=== PATIENT | male | born 1945 | race Two or more races ===

== ENCOUNTER 2016-10-19 11:27 | Inpatient (IN) | payer MEDICARE, OTHER ==
[~2016-10-19] VITALS: Ht 175.3 cm; Wt 79.4 kg
[2016-10-19] MEDS ORDERED: CYAN10006 IJ (16:42)
[2016-10-19] MEDS ORDERED: FLUO60SO3 TP (16:42)
[2016-10-19] MEDS ORDERED: PIPE3.379 IV (16:42)
[2016-10-19] MEDS ORDERED: PRAS10TA5 PO (16:42)
[2016-10-19] MEDS ORDERED: ROSU10TA PO (16:42)
[2016-10-19] MEDS ORDERED: CALC1TAB91 PO (16:42)
[2016-10-19] MEDS ORDERED: VANC1PLA10 IV (16:42)
[2016-10-19] MEDS ORDERED: HYDR59LO5 RC (16:42)
[2016-10-19] MEDS ORDERED: FENO134C PO (16:42)
[2016-10-19] MEDS ORDERED: TOLT4CAP PO (16:42)
[2016-10-19] MEDS ORDERED: EZET10TA13 PO (16:42)
[2016-10-19] MEDS ORDERED: DULO20CA PO (16:42)
[2016-10-19] MEDS ORDERED: OMEG1CAP40 PO (16:42)
[2016-10-19] MEDS ORDERED: CELE200C PO (16:42)
--- NOTE | 2016-10-19 19:16 | NUR ---
pt admitted at 10/19 at 1600. pt transferred in a gurney. vital signs : temp 98.2 hr 84 rr 16 o2 sat 98% bp 121/67. pt had no belongings. all wounds taken picture and put in chart. pt had no dentures on arrival. pt seen by doctor. all dresssings changed. all assessments done and charted. med recon done. pt in no signs of acute distress.
[2016-10-19 20:00] VITALS: BP 170/68
[2016-10-19 20:56] VITALS: BP 103/63
[2016-10-19] MEDS ORDERED: PIPERACILLIN/TAZOBACTAM/D5W 3.375 G in PREMIXED 1 EACH IV SCH (22:00)
[2016-10-19] MEDS ORDERED: PIPERACILLIN/TAZO/D5W 3.375 GM FROZEN IV SCH (22:00)
[2016-10-19] MEDS: PIPERACILLIN/TAZOBACTAM/D5W 3.375 G in PREMIXED 1 EACH IV SCH (22:09)
--- NOTE | 2016-10-20 02:07 | NUR ---
NEW ADMIT FROM [facility] ,S/P LEFT HIP ORIF STILL WITH PEDRO LUIS COVERED WITH DRESSING, BP RECHECKED AND NOTED WNL. DENIES ANY PAIN, MIDLINE PATENT AND FLUSHES BUT NO BLOOD RETURN. ON ANTIBIOTICS, ALL NEEDS ATTENDED, CALL LIGHT AT REACHED.
[2016-10-20] MEDS: VANCOMYCIN IV 1 G in PREMIXED 0 EACH IV SCH ×2 (02:59→20:19)
[2016-10-20 05:17] LABS: *OCCULT BLOOD STOOL POSITIVE (NEGATIVE)
--- NOTE | 2016-10-20 05:58 | NUR ---
PATIENT SLEPT MOST OF THE NIGHT, AWAKE, VERBALLY RESPONSIVE, NO SOB NO CHEST PAIN NOTED, COMPLAIN OF MILD DISCOMFORT ON LEFT HIP SURGERY, DRESSING INTACT, PILLOW PLACED BETWEEN THE LEGS, PATIENT HAS SOFT BM, STOOL SAMPLE SEND IO THE LAB, CONT IV ABX WITH NO ADVERSE REACTION NOTED, MIDLINE ON LEFT UPPER ARM INTACT, PATENT, NO S/S OF DISTRESS. CONT TO MONITOR.
[2016-10-20] MEDS: PIPERACILLIN/TAZOBACTAM/D5W 3.375 G in PREMIXED 1 EACH IV SCH ×3 (07:07→22:19)
[2016-10-20 07:33] LABS: BASOPHILS % (AUTO) 0.3 % (0.0-2.0); EOSINOPHILS # (AUTO) 0.3 K/uL (0.0-0.7); EOSINOPHILS % (AUTO) 2.2 % (0.0-7.0); HEMATOCRIT 25.3 % (40-50); HEMOGLOBIN 8.3 G/DL (14.0-18.0); LYMPHOCYTES # (AUTO) 2.8 K/UL (0.8-4.8); LYMPHOCYTES % (AUTO) 18.6 % (20.5-51.5); MEAN CORPUSCULAR HEMOGLOBIN 30.6 UUG (27.0-31.0); MEAN CORPUSCULAR HGB CONC 33 g/dL (32.0-37.0); MONOCYTES % (AUTO) 6.7 % (0.0-11.0); NEUTROPHILS % (AUTO) 72.2 % (38.5-71.5); PLATELET COUNT (AUTO) 291 K/UL (150-450); RED BLOOD CELL COUNT(AUTO) 2.72 MIL/UL (4.7-6.1); WHITE BLOOD COUNT (AUTO) 15.1 K/UL (4.0-11.2)
[2016-10-20 07:47] VITALS: BP 107/62
[2016-10-20 07:50] LABS: BILIRUBIN,TOTAL 0.8 mg/dL (0.2-1.0); MAGNESIUM 1.4 mg/dL (1.8-2.4); PHOSPHOROUS 3.1 mg/dL (2.5-4.9); POTASSIUM 2.9 mmol/L (3.5-5.1); TOTAL PROTEIN, SERUM 5.1 g/dL (6.4-8.2)
[2016-10-20 07:57] LABS: BAND % (MANUAL) 6 % (0-10); EOSINOPHILS % (MANUAL) 1 % (0-8); LYMPHOCYTES % (MANUAL) 21 % (20-40); MONOCYTES % (MANUAL) 3 % (2-10); NEUTROPHILS % (MANUAL) 69 % (42-75)
[2016-10-20 07:59] LABS: THYROID STIMULATING HORMONE 1.238 mIU/mL (0.358-3.740)
[2016-10-20] MEDS ORDERED: Medication Not On Formulary EA (Omega-3 Fatty Acids/Fish Oil (Omega 3 1,000 Mg Softgel) PO SCH (09:00)
[2016-10-20] MEDS ORDERED: FLUOCINONIDE 0.05% SOLU 60 ML BOTTLE TP SCH (09:00)
[2016-10-20] MEDS: FLUOCINONIDE 0.05% CREAM 30 GM TUBE TP SCH ×2 (09:30→17:53)
[2016-10-20] MEDS: CALCIUM CARB/VITAMIN D 500MG-200UNITS TABLET PO SCH ×2 (10:11→17:53)
[2016-10-20] MEDS: TOLTERODINE 2 MG TABLET PO SCH ×2 (10:11→20:29)
[2016-10-20] MEDS: DULOXETINE 20 MG CAPSULE.DR PO SCH (10:11)
[2016-10-20] MEDS: OMEGA-3 FATTY ACIDS/FISH OIL CAPSULE PO SCH (10:11)
[2016-10-20] MEDS: NICOTINE 7 MG/24HR PATCH TD SCH (10:12)
[2016-10-20] MEDS ORDERED: POTASSIUM CHLORIDE 20 MEQ TAB.PRT.SR PO ONE (11:30)
[2016-10-20] MEDS: MAGNESIUM SULFATE/D5W 100 ML IV SCH ×3 (12:37→15:04)
[2016-10-20] MEDS ORDERED: SOD FERRIC GLUC COMPLX/SUCROSE 125 MG in IV NORMAL SALINE 100 ML IV SCH (15:00)
--- NOTE | 2016-10-20 15:13 | NUR ---
Clinical Pharmacy Note: Vancomycin Pharmacy to Dose Subjective: To start vancomycin in this 70 y/o gentleman for sepsis, leukocytosis, perirectal abscess Objective: weight: 175 lbs height 5'9'' BUN 8 Scr 1.0 Wbc 15.1 Temp 98.2 Note: patient was on vancomycin 1gm q18hrs at [facility], trough was 17 yesterday 10/19 @ 0743 before transfer to . Assessment/Plan Regimen of vanco 1gm q18hrs was continued based on previous dosing at [facility], expected trough 17. Will order trough before 4th scheduled dose (not ordered yet). If renal function were to become unstable, will d/c and dose per level or adjust as apprpriately. Will continue to follow.
[2016-10-20] MEDS: HYDROCODONE/APAP 5-325MG TABLET PO PRN (15:31)
[2016-10-20] MEDS: SOD FERRIC GLUC COMPLX/SUCROSE 125 MG in IV NORMAL SALINE 100 ML IV SCH (17:53)
[2016-10-20 20:16] VITALS: BP 108/72
[2016-10-20] MEDS: ACETAMINOPHEN 325 MG TABLET PO PRN (20:31)
[2016-10-21] MEDS: HYDROCODONE/APAP 5-325MG TABLET PO PRN ×2 (00:48→11:57)
[2016-10-21] MEDS: PIPERACILLIN/TAZOBACTAM/D5W 3.375 G in PREMIXED 1 EACH IV SCH ×3 (06:02→21:21)
--- NOTE | 2016-10-21 06:35 | NUR ---
SON CAME LAST NIGHT BROUGHT FOOD AND FED PT,PT NOT EATING WELL,ENCOURAGE TO DRINK JUICES AND BOOST, TRANSLATED BY SON, MEDICATED WITH TYLENOL WITH LITTLE EFFECT AND GIVEN NORCO AND FALL ASLEEP.CONTINUE ON ANTIBIOTICS,INCONTINENT OF BLADDER, NO BM OVERNIGHT. KEPT LEGS ELEVATED.VSS,AFEBRILE
--- NOTE | 2016-10-21 08:10 | NUR ---
TAVIA Rizzo at bedside, encouraging patient to let check diaper, patient refused, stated "later". Refused breakfast, states if he eats he has BM. Encouraged to eat, advised we can change him immediately if has BM, refused, stating "hurts to much". Offered pain med, stated later. Just wants to be left alone. Drank cup of apple juice.Will continue to monitor.
[2016-10-21 08:21] VITALS: BP 118/70
[2016-10-21] MEDS: CALCIUM CARB/VITAMIN D 500MG-200UNITS TABLET PO SCH ×2 (08:24→16:57)
[2016-10-21] MEDS: TOLTERODINE 2 MG TABLET PO SCH ×2 (08:24→21:21)
[2016-10-21] MEDS: DULOXETINE 20 MG CAPSULE.DR PO SCH (08:24)
[2016-10-21] MEDS: OMEGA-3 FATTY ACIDS/FISH OIL CAPSULE PO SCH (08:24)
[2016-10-21] MEDS: FLUOCINONIDE 0.05% CREAM 30 GM TUBE TP SCH ×2 (08:26→16:57)
[2016-10-21] MEDS: NICOTINE 7 MG/24HR PATCH TD SCH (08:28)
--- NOTE | 2016-10-21 12:30 | NUR ---
Wound care nurse here. Blossom X1 tab po given at 1200. Assisted changing patient's diaper. Cleansed kemi rectal area well, patted dry, applied Z Guard cream. Aman heel DTI, non opened. Left lateral ankle DTI, applied Fluocinonide cream as ordered, place Meplilex and wrapped with loose kurlix. Perirectal wound (S/P I&D on 10-18-16) BREEZY. Minimal drainage noted. Removed soaked drsg from 2 wounds on left hip. Applied AB pads, taped in place. Large area of edema noted. Wound care nurse stated would call the surgeon and inform. Will continue to monitor. Call light within hand reach.
--- NOTE | 2016-10-21 13:20 | NUR ---
WOUND CARE CONSULT: PT PRESENTS WITH EDEMA TO LEFT SIDE OF BODY (HIP AND FLANK AREA) WITH SLIGHT BRUISING ABOVE HIP INCISION. WEEPING NOTED TO LARGER HIP INCISION. PT NOTED TO HAVE DEEP TISSUE INJURIES TO BILAT HEELS AND LEFT LATERAL ANKLE, INTACT, PRESENT ON ADMISSION. DEFER TO MD/SURGEON FOR PERIRECTAL ABSCESS S/P I&D. PER NURSING STAFF, PT TO HAVE SITZ BATHS. ALL SKIN PROTECTION AND WOUND RECOMMENDATIONS DISCUSSED WITH NURSING STAFF. RECOMMEND SURGICAL FOLLOWUP FOR PERIRECTAL AND HIP SURGICAL SITES. WILL SEE PRN. PT ON FIRST STEP MATTRESS. MD IN AGREEMENT WITH PLAN OF CARE. Addendum: 10/21/16 at 1323 by DYLAN NATH RN Amended: Links added.
--- NOTE | 2016-10-21 14:51 | NUR ---
Clinical Pharmacy Note: Vancomycin Pharmacy to Dose Subjective: To continue vancomycin in this 70 y/o gentleman for sepsis, leukocytosis, perirectal abscess Objective: weight: 175 lbs height 5'9'' BUN 8 (10/20) Scr 1.0 (10/20) Wbc 15.1 (10/20) Temp 98.2 Note: patient was on vancomycin 1gm q18hrs at [facility], trough was 17 yesterday 10/19 @ 0743 before transfer to . Assessment/Plan Regimen of vanco 1gm q18hrs was continued based on previous dosing at [facility], expected trough 17. Ordered trough before 4th scheduled dose (due tomorrow at 0830). Will check trough in am and adjust as needed. If renal function were to become unstable, will d/c and dose per level or adjust as apprpriately as well. Will continue to follow.
[2016-10-21] MEDS: SOD FERRIC GLUC COMPLX/SUCROSE 125 MG in IV NORMAL SALINE 100 ML IV SCH (15:20)
[2016-10-21] MEDS: VANCOMYCIN IV 1 G in PREMIXED 0 EACH IV SCH (16:16)
--- NOTE | 2016-10-21 17:46 | NUR ---
Family brought food from home. Refused meal tray. All scheduled IVPB administered this afternoon, infused without incidence to left upper arm double lumen midline. Checked dressing on left hip over wound X2, noted less drainage. Patient states little pain at this time. FUNDS TRANSFER CLERK here to change patients diaper, advised to call me if desires pain med. Verbalized understanding. Will continue to monitor.
[2016-10-21 21:19] VITALS: BP 117/61
[2016-10-22] MEDS: PIPERACILLIN/TAZOBACTAM/D5W 3.375 G in PREMIXED 1 EACH IV SCH ×3 (05:09→21:07)
[2016-10-22 07:45] VITALS: BP 146/58
[2016-10-22 08:04] LABS: BASOPHILS % (AUTO) 0.2 % (0.0-2.0); EOSINOPHILS # (AUTO) 0.3 K/uL (0.0-0.7); EOSINOPHILS % (AUTO) 2.3 % (0.0-7.0); HEMATOCRIT 26.6 % (40-50); HEMOGLOBIN 8.8 G/DL (14.0-18.0); LYMPHOCYTES # (AUTO) 2.9 K/UL (0.8-4.8); LYMPHOCYTES % (AUTO) 25.4 % (20.5-51.5); MEAN CORPUSCULAR HEMOGLOBIN 30.9 UUG (27.0-31.0); MEAN CORPUSCULAR HGB CONC 33 g/dL (32.0-37.0); MEAN CORPUSCULAR VOLUME 92.8 FL (82.0-92.0); MONOCYTES # (AUTO) 0.9 K/UL (0.1-1.30); MONOCYTES % (AUTO) 7.8 % (0.0-11.0); NEUTROPHILS # (AUTO) 7.2 K/UL (1.8-8.9); NEUTROPHILS % (AUTO) 64.3 % (38.5-71.5); PLATELET COUNT (AUTO) 324 K/UL (150-450); RED BLOOD CELL COUNT(AUTO) 2.86 MIL/UL (4.7-6.1)
[2016-10-22 08:12] LABS: WHITE BLOOD COUNT (AUTO) 11.3 K/UL (4.0-11.2)
[2016-10-22] MEDS: OMEGA-3 FATTY ACIDS/FISH OIL CAPSULE PO SCH (08:22)
[2016-10-22] MEDS: CALCIUM CARB/VITAMIN D 500MG-200UNITS TABLET PO SCH ×2 (08:22→16:51)
[2016-10-22] MEDS: TOLTERODINE 2 MG TABLET PO SCH ×2 (08:22→20:41)
[2016-10-22] MEDS: DULOXETINE 20 MG CAPSULE.DR PO SCH (08:22)
[2016-10-22] MEDS: FLUOCINONIDE 0.05% CREAM 30 GM TUBE TP SCH ×2 (08:23→16:50)
[2016-10-22] MEDS: NICOTINE 7 MG/24HR PATCH TD SCH (08:23)
[2016-10-22 08:48] LABS: BILIRUBIN,TOTAL 0.9 mg/dL (0.2-1.0); PHOSPHOROUS 3.1 mg/dL (2.5-4.9); POTASSIUM 3.4 mmol/L (3.5-5.1); TOTAL PROTEIN, SERUM 5.6 g/dL (6.4-8.2)
[2016-10-22 08:57] LABS: MAGNESIUM 1.2 mg/dL (1.8-2.4)
--- NOTE | 2016-10-22 09:00 | NUR ---
Dressing to left hip wounds X2, C,D&I. No drainage noted. Decreased swelling/edema noted to left hip/thigh area. Will continue to monitor.
--- NOTE | 2016-10-22 09:36 | NUR ---
Notified Dr. Henriquez who is in the unit regarding low magnesium 1.2 and potassium 3.4, MD said will take a look.
[2016-10-22] MEDS ORDERED: POTASSIUM CHLORIDE 20 MEQ TAB.PRT.SR PO ONE (09:45)
[2016-10-22] MEDS ORDERED: MAGNESIUM OXIDE 400 MG TABLET PO ONE (09:45)
--- NOTE | 2016-10-22 10:00 | NUR ---
New orders per Dr. Henriquez for Mg and KCL replacement given. Will monitor and administer when available.
[2016-10-22] MEDS: VANCOMYCIN IV 1 G in PREMIXED 0 EACH IV SCH (10:15)
--- NOTE | 2016-10-22 10:16 | NUR ---
Patient complaining why so many pills. Explained his Mg and KCL levels were low and these are replacements. Patient refused breakfast, reposition and diaper change this morning. Now refusing again, I insisted he get cleaned up and changed, after much persistance, JUMPBASTING ARMHOLE BASTER changed. He refused for placement of Abduction pillow, stating that it causes much pain. JUMPBASTING ARMHOLE BASTER rolled blanket and place between knees, placed rolled pillow to elevate heels off bed. Patient made comfortable. Patient asks everyone that enters room "Where are my dentures". I explained that his son is aware and in touch with pertinent people regarding the loss of his dentures at [facility]. Patient forgetful. Will speak to son when he arrives this afternoon.
--- NOTE | 2016-10-22 11:59 | NUR ---
TAVIA Rizzo reported patient had large, brown soft BM. Patient now in P/T room working with P/T. Patient reluctant and guarded, but co-operating.
--- NOTE | 2016-10-22 12:00 | NUR ---
I was informed by P/T that when got patient to P/T therapy room, patients BP was 96/58. Checked BP after 20 minutes of patient being back in bed and BP increased to 125/64. No S&S of any distress noted.
[2016-10-22] MEDS: HYDROCORTISONE 2.5% LOTION 59 ML BOTTLE TP PRN ×2 (12:02→16:50)
[2016-10-22] MEDS: Z GUARD REMEDY PASTE 57 GM TUBE TOP PRN ×2 (12:02→16:50)
[2016-10-22] MEDS: SOD FERRIC GLUC COMPLX/SUCROSE 125 MG in IV NORMAL SALINE 100 ML IV SCH (14:51)
--- NOTE | 2016-10-22 15:41 | NUR ---
Clinical Pharmacy Note: Vancomycin Pharmacy to Dose Subjective: To continue vancomycin in this 70 y/o gentleman for sepsis, leukocytosis, perirectal abscess Objective: weight: 175 lbs height 5'9'' BUN 8) Scr 1.0 Wbc 11.3 Temp 98.4 Vancomycin trough 18.9 Assessment/Plan Since Vancomycin trough is within the therapeutic range, will continue same dose of 1 gram Iv every 18hrs. If renal function were to become unstable, will d/c and dose per level or adjust as apprpriately as well. Will continue to follow.
--- NOTE | 2016-10-22 17:18 | NUR ---
During the course of the day, many attempts have been made for placement of abduction pillow. Patient refused, stating it was too painful to have on. Accepted rolled blanket between knees and pillow to elevate heels off the bed. Patient has also refused pain med when offered, even though complains of pain/discomfort. Family has not shown up today to talk with them regarding this issue. Checked PV=364/62 Hr=67. All needs attended, encouraged to call for any assistance, call light within reach.
--- NOTE | 2016-10-22 18:21 | NUR ---
Called patients son at [phone]. Informed him that patient has refused to eat all 3 meals today. Offered patient concepcion Suarez pudding.Refused. Explained to son that patient is weak, had trouble co-operating with phys therapy today. Patient does not want to move in bed, or get OOB. Suggested someone bring patients own food. Son stated his dad doesn't eat because he doesn't have his teeth, I explained this is why puree diet was ordered. He just doesn't like the food. I added that I have offered patient pain medication several times during the day and he states "later!" Asked son to please tell patient to accept pain meds for/if in pain. Agreed. Transferred call to patients room, entered patients room and handed him the phone.
--- NOTE | 2016-10-22 19:30 | NUR ---
PT ALERT AND ORIENTED IN BED. NO DISTRESS NOTED. MIDLINE INTACT AND PATENT. CLEAN AND DRY. TURNED AND REPOSITIONED. SON AT BEDSIDE FEEDING PT. CALL LIGHT WITHIN REACH. SAFETY MAINTAINED. WILL CONTINUE TO MONITOR.
[2016-10-22 20:13] VITALS: BP 114/69
[2016-10-22] MEDS: MAGNESIUM OXIDE 400 MG TABLET PO SCH (20:42)
[2016-10-23] MEDS: VANCOMYCIN IV 1 G in PREMIXED 0 EACH IV SCH ×2 (02:07→21:39)
[2016-10-23] MEDS: PIPERACILLIN/TAZOBACTAM/D5W 3.375 G in PREMIXED 1 EACH IV SCH ×3 (05:00→21:38)
--- NOTE | 2016-10-23 06:24 | NUR ---
PT RESTING IN BED. NO DISTRESS NOTED. CLEAN AND DRY. TURNED AND REPOSITIONED. MIDLINE INTACT AND PATENT. DRESSING CHANGED PER SOILING. SAFETY MAINTAINED. CALL LIGHT WITHIN REACH.
[2016-10-23 07:33] VITALS: BP 138/71
[2016-10-23 08:06] LABS: *IMMUNOGLOBULIN G, SERUM 846 mg/dL (700-1600); IMMUNOGLOBULIN A, SERUM 359 mg/dL (61-437); IMMUNOGLOBULIN M, SERUM 125 mg/dL (20-172)
--- NOTE | 2016-10-23 08:12 | NUR ---
RECEIVED PATIENT ASLEEP, NOT IN ANY FORM OF DISTRESS. CALL LIGHT WITHIN REACH. WITH IVF INFUSING WELL OVER L UPPER MIDLINE ON TKO 10CC/HR D5NS 250 ML.
[2016-10-23] MEDS: ACETAMINOPHEN 325 MG TABLET PO PRN (08:47)
[2016-10-23] MEDS: DULOXETINE 20 MG CAPSULE.DR PO SCH (09:00)
[2016-10-23] MEDS: NICOTINE 7 MG/24HR PATCH TD SCH (09:00)
[2016-10-23] MEDS: OMEGA-3 FATTY ACIDS/FISH OIL CAPSULE PO SCH (09:00)
[2016-10-23] MEDS: CALCIUM CARB/VITAMIN D 500MG-200UNITS TABLET PO SCH ×2 (09:00→17:00)
[2016-10-23] MEDS: TOLTERODINE 2 MG TABLET PO SCH ×2 (09:00→21:39)
--- NOTE | 2016-10-23 09:10 | NUR ---
PATIENT REFUSED TO TAKE ANY MEDICATIONS ASIDE FROM HIS PRN PAIN MEDICATION. EXPLAINED RISKS AND BENEFITS. PATIENT STILL REFUSES TO TAKE MEDICATIONS EVEN NICOTINE PATCH. PATIENT CLAIMS TO HAVE STOMACH ACHE AND REFUSES TO TAKE ANY FOOD WELL BECAUSE HE SAID HE NEEDS HIS DENTURES.
[2016-10-23] MEDS: FOLIC ACID 1 MG TABLET PO SCH (09:30)
[2016-10-23] MEDS: FLUOCINONIDE 0.05% CREAM 30 GM TUBE TP SCH ×2 (11:17→17:10)
--- NOTE | 2016-10-23 12:37 | NUR ---
OFFERED MEDICATIONS ONCE AGAIN BUT REFUSED, CONTINUE TO EXPLAIN RISKS AND BENEFITS.
--- NOTE | 2016-10-23 15:13 | NUR ---
STILL WITH ABDOMINAL PAIN DESPITE OFFERING SOUP AND BREAD. INFORMED HESHAM SALAZAR 30 ML PO Q6H PRN ORDERED.
[2016-10-23] MEDS ORDERED: MAG HYDROX/AL HYDROX/SIMETH 30 ML LIQUID UDC PO PRN (15:15)
--- NOTE | 2016-10-23 16:07 | NUR ---
Clinical Pharmacy Note: Vancomycin Pharmacy to Dose Subjective: To continue vancomycin in this 70 y/o gentleman for sepsis, leukocytosis, perirectal abscess Objective: weight: 175 lbs height 5'9'' BUN 8 (10/22) Scr 1.0 (10/22) Wbc 11.3 (10/22) Temp 98.4 Vancomycin trough 18.9 (10/22 @0830) Assessment/Plan Since Vancomycin trough was within the therapeutic range, will continue same dose of 1 gram Iv every 18hrs. If renal function were to become unstable, will d/c and dose per level or adjust as apprpriately as well. Will continue to follow.
--- NOTE | 2016-10-23 16:12 | NUR ---
Changed dressing over left heel, left leg and hip area. Left heel dressed with Mepilex and hydrogel as ordered.
--- NOTE | 2016-10-23 18:42 | NUR ---
Patient refused to take Oscal medication, he said his stomach is still a little bit upset. Discussed risks and benefits but still refused.
[2016-10-23 19:35] VITALS: BP 128/78
[2016-10-23] MEDS: MAGNESIUM OXIDE 400 MG TABLET PO SCH (21:39)
[2016-10-23] MEDS: FERROUS SULFATE 325 MG TABEC PO SCH (21:39)
[2016-10-24] MEDS: PIPERACILLIN/TAZOBACTAM/D5W 3.375 G in PREMIXED 1 EACH IV SCH ×3 (06:17→21:05)
[2016-10-24] MEDS: PANTOPRAZOLE SODIUM 40 MG TABLET.DR PO SCH (06:18)
[2016-10-24 08:00] VITALS: BP 118/64
[2016-10-24] MEDS: DULOXETINE 20 MG CAPSULE.DR PO SCH (08:48)
[2016-10-24] MEDS: CALCIUM CARB/VITAMIN D 500MG-200UNITS TABLET PO SCH ×2 (08:48→16:56)
[2016-10-24] MEDS: FOLIC ACID 1 MG TABLET PO SCH (08:49)
[2016-10-24] MEDS: NICOTINE 7 MG/24HR PATCH TD SCH (08:49)
[2016-10-24] MEDS: TOLTERODINE 2 MG TABLET PO SCH ×2 (08:49→20:47)
[2016-10-24] MEDS: FERROUS SULFATE 325 MG TABEC PO SCH ×2 (08:49→20:47)
[2016-10-24] MEDS: OMEGA-3 FATTY ACIDS/FISH OIL CAPSULE PO SCH (08:50)
[2016-10-24] MEDS: FLUOCINONIDE 0.05% CREAM 30 GM TUBE TP SCH ×2 (09:34→16:56)
--- NOTE | 2016-10-24 09:57 | NUR ---
pt does not want to take medications on time. pt given one pill. pt took the med and shouted get out. some meds not given. will continue to offer mds as prescribed.
--- NOTE | 2016-10-24 10:55 | NUR ---
Clinical Pharmacy Note: Vancomycin Pharmacy to Dose Subjective: To continue vancomycin in this 70 y/o gentleman for sepsis, leukocytosis, perirectal abscess Objective: weight: 175 lbs height 5'9'' BUN 8 (10/22) Scr 1.0 (10/22) Wbc 11.3 (10/22) Temp 98.6 Assessment/Plan Will continue same dose of 1 gram IVPB every 18hrs for today. Next dose is due today at 1500. Will continue to follow.
[2016-10-24 13:07] LABS: A/G RATIO 0.9 (0.7-1.7); ALBUMIN 2.3 g/dL (2.9-4.4); ALPHA-1-GLOBULIN 0.3 g/dL (0.0-0.4); ALPHA-2-GLOBULIN 0.6 g/dL (0.4-1.0); BETA GLOBULIN 0.8 g/dL (0.7-1.3); GAMMA GLOBULIN 0.9 g/dL (0.4-1.8); GLOBULIN, TOTAL 2.5 g/dL (2.2-3.9); M-SPIKE Not Observed g/dL (Not Observed)
--- NOTE | 2016-10-24 13:20 | NUR ---
Refrigerator Cabinetmaker BETHANY met with patient at [facility] to assess pt needs and provide support. The patient is a 70 year old [place] male (Bruneian speaking, with minimal Citizen Of [place]) admitted for generalized weakness, abdominal and left hip pain after a fall at home. The patient was laying in his bed during the assessment. He was calm and cooperative during the interview. The patient's mood was somewhat depressed and irritable. The patient was able to answer a few questions in Citizen [place]. He did permit BETHANY to contact his son Sherine Hearn in order to obtain additional information. BETHANY spoke with Sherine who stated that he lives with the patient at [[id number] [place] [address]]. Per son, the patient had his dentures at [facility] with him and that the nurses took his dentures to clean them prior to him going in for a procedure. Per son, the dentures were never returned and that the hospital staff has promised to replace the lost dentures. SW informed son that she will follow-up regarding this matter. Social history: The patient was born and raised in [place] and grew up with both parents. The patient completed university in [place] and worked as an economist. The patient denied any history of abuse or domestic violence. The patient denied any history of drug or alcohol abuse, however per son, the patient does like to drink vodka socially. The patient has a history of smoking cigarettes but quit many years ago. The patient's son stated that he would like for the patient to return home upon discharge. SW engaged in active listening and provided supportive counseling during the interview to address patient's depressive symptoms related to his decline in functioning. SW will continue to address issues of loss related to recent hospitalization. SW will encourage compliance with rehab goals. SW will be available as needed.
[2016-10-24] MEDS: VANCOMYCIN IV 1 G in PREMIXED 0 EACH IV SCH (15:21)
--- NOTE | 2016-10-24 17:09 | NUR ---
pt refuses afternoon meds such as calcium. offered pain meds. pt refused. explained risks and benefits. pt states that he already took all the meds in the morning. will continue to reasses for complications.
--- NOTE | 2016-10-24 19:07 | NUR ---
PT STILL REFUSES TO EAT FOOD FROM THE HOSPITAL. PT ALSO REFUSED CALCIUM SUPPLEMENT AND NORCO AT [facility] BECAUSE HE STATES THAT HE HAS TAKEN EVERYTHING IN THE MORNING. PT HAD NO THERAPY TODAY. PT CONTINUE TO COMPLAIN OF PAIN BUT REFUSES PO MEDS. ASSISTED WITH DIAPER CHANGE. WILL ENDORSE NEW ORDERS TO MAIL COURIER NURSE.
[2016-10-24 20:00] VITALS: BP 122/66
[2016-10-24] MEDS: MAGNESIUM OXIDE 400 MG TABLET PO SCH (20:47)
[2016-10-24] MEDS: FLUCONAZOLE 100 MG TABLET PO SCH (22:13)
[2016-10-24] MEDS ORDERED: FLUCONAZOLE 100 MG TABLET ONE (22:18)
[2016-10-25] MEDS: PANTOPRAZOLE SODIUM 40 MG TABLET.DR PO SCH (06:21)
[2016-10-25] MEDS: PIPERACILLIN/TAZOBACTAM/D5W 3.375 G in PREMIXED 1 EACH IV SCH ×2 (06:22→14:34)
[2016-10-25 07:49] LABS: BASOPHILS # (AUTO) 0.1 K/uL (0.0-8.0); BASOPHILS % (AUTO) 0.6 % (0.0-2.0); EOSINOPHILS # (AUTO) 0.3 K/uL (0.0-0.7); EOSINOPHILS % (AUTO) 2.4 % (0.0-7.0); HEMATOCRIT 26.1 % (40-50); HEMOGLOBIN 8.9 G/DL (14.0-18.0); LYMPHOCYTES # (AUTO) 4.2 K/UL (0.8-4.8); MEAN CORPUSCULAR HEMOGLOBIN 31.6 UUG (27.0-31.0); MEAN CORPUSCULAR HGB CONC 34 g/dL (32.0-37.0); MEAN CORPUSCULAR VOLUME 93.2 FL (82.0-92.0); MONOCYTES # (AUTO) 0.8 K/UL (0.1-1.30); MONOCYTES % (AUTO) 6.7 % (0.0-11.0); NEUTROPHILS % (AUTO) 53.3 % (38.5-71.5); PLATELET COUNT (AUTO) 366 K/UL (150-450); RED BLOOD CELL COUNT(AUTO) 2.81 MIL/UL (4.7-6.1); WHITE BLOOD COUNT (AUTO) 11.4 K/UL (4.0-11.2)
[2016-10-25 08:00] VITALS: BP 136/69
[2016-10-25 08:02] LABS: BILIRUBIN,TOTAL 0.7 mg/dL (0.2-1.0); CREATININE 2.1 mg/dL (0.6-1.3); MAGNESIUM 1.4 mg/dL (1.8-2.4); PHOSPHOROUS 3.4 mg/dL (2.5-4.9); POTASSIUM 3.3 mmol/L (3.5-5.1); TOTAL PROTEIN, SERUM 5.7 g/dL (6.4-8.2)
[2016-10-25] MEDS: CALCIUM CARB/VITAMIN D 500MG-200UNITS TABLET PO SCH ×2 (09:00→17:12)
[2016-10-25] MEDS: NICOTINE 7 MG/24HR PATCH TD SCH (09:00)
[2016-10-25] MEDS: FERROUS SULFATE 325 MG TABEC PO SCH ×2 (09:00→21:15)
[2016-10-25] MEDS: TOLTERODINE 2 MG TABLET PO SCH ×2 (09:00→21:15)
[2016-10-25] MEDS: FOLIC ACID 1 MG TABLET PO SCH (09:00)
[2016-10-25] MEDS: FLUCONAZOLE 100 MG TABLET PO SCH (09:00)
[2016-10-25] MEDS: OMEGA-3 FATTY ACIDS/FISH OIL CAPSULE PO SCH (09:00)
[2016-10-25] MEDS: DULOXETINE 20 MG CAPSULE.DR PO SCH (09:00)
[2016-10-25] MEDS: FLUOCINONIDE 0.05% CREAM 30 GM TUBE TP SCH ×2 (09:00→17:12)
--- NOTE | 2016-10-25 10:07 | NUR ---
PT CONTINUES TO BE BELIGERENT AND DOES NOT WANT TO TAKE MEDS ON TIME. PT ALSO REFUSED THERAPY SESSION. PT HAVING A NON PRODUCTIVE COUGH. WILL CONTINUE TO ENCOURAGE DAILY DOSES OF MEDS AND ASSESS PAT FOR COMPLICATIONS.
[2016-10-25] MEDS ORDERED: POTASSIUM CHLORIDE 20 MEQ POWDER PACKET PO ONE (14:30)
[2016-10-25] MEDS ORDERED: MAGNESIUM OXIDE 400 MG TABLET PO ONE (14:45)
--- NOTE | 2016-10-25 16:08 | NUR ---
Clinical Pharmacy Note: Vancomycin Pharmacy to Dose Subjective: To continue vancomycin in this 70 y/o gentleman for sepsis, leukocytosis, perirectal abscess Objective: weight: 175 lbs height 5'9'' BUN 13 Scr 2.1 Wbc 11.4 Temp 98.2 Vancomycin random 33.5 on am labs Assessment/Plan Since Vancomycin random is high and renal function is decreased, will hold Vancomycin dosing and draw random in am. Will follow the level in am for further dosing.
--- NOTE | 2016-10-25 17:18 | NUR ---
pt also refused new orders of magnesium and potassium for abnormal values in electrolytes. pt took calcium supplement with the help of a family member. pt still continuest complain about stomach pain. pt dressing changed and applied betadine. reassessed drainage site. site appears clean. applied mepilex and hydrogel as needed. pt participated in therapy. new labs in chart as of today. will continue to endorse new orders to planting material unloader nurse.
[2016-10-25 20:09] VITALS: BP 114/65
[2016-10-25] MEDS: MAGNESIUM OXIDE 400 MG TABLET PO SCH (21:15)
[2016-10-26] MEDS: PANTOPRAZOLE SODIUM 40 MG TABLET.DR PO SCH (06:38)
--- NOTE | 2016-10-26 07:15 | NUR ---
REC'D BEDSIDE SBAR REPORT, PT AWAKE, PT POSITIONED FOR COMFORT.
[2016-10-26] MEDS: FLUOCINONIDE 0.05% CREAM 30 GM TUBE TP SCH ×2 (09:01→16:20)
[2016-10-26] MEDS: NICOTINE 7 MG/24HR PATCH TD SCH (09:01)
[2016-10-26] MEDS: CALCIUM CARB/VITAMIN D 500MG-200UNITS TABLET PO SCH ×2 (09:02→16:20)
[2016-10-26] MEDS: TOLTERODINE 2 MG TABLET PO SCH ×2 (09:02→20:41)
[2016-10-26] MEDS: DULOXETINE 20 MG CAPSULE.DR PO SCH (09:02)
[2016-10-26] MEDS: FLUCONAZOLE 100 MG TABLET PO SCH (09:02)
[2016-10-26] MEDS: FERROUS SULFATE 325 MG TABEC PO SCH ×2 (09:02→20:42)
[2016-10-26] MEDS: OMEGA-3 FATTY ACIDS/FISH OIL CAPSULE PO SCH (09:02)
[2016-10-26] MEDS: FOLIC ACID 1 MG TABLET PO SCH (09:02)
[2016-10-26 10:02] VITALS: BP 150/76
--- NOTE | 2016-10-26 14:05 | NUR ---
TEAM CONFERENCE MEETING 10/26/16
--- NOTE | 2016-10-26 18:25 | NUR ---
PT PROGRESSING TOWARDS GOALS. PT PARTICIPATING IN ALL ACTIVITIES. CONTINUE PLAN OF CARE.
[2016-10-26 18:28] VITALS: BP 138/69
[2016-10-26 19:54] VITALS: BP 132/75
[2016-10-26] MEDS: MAGNESIUM OXIDE 400 MG TABLET PO SCH (20:42)
[2016-10-27] MEDS: PANTOPRAZOLE SODIUM 40 MG TABLET.DR PO SCH (06:58)
[2016-10-27 08:01] VITALS: BP 131/77
[2016-10-27] MEDS: OMEGA-3 FATTY ACIDS/FISH OIL CAPSULE PO SCH (09:03)
[2016-10-27] MEDS: FOLIC ACID 1 MG TABLET PO SCH (09:03)
[2016-10-27] MEDS: FLUCONAZOLE 100 MG TABLET PO SCH (09:03)
[2016-10-27] MEDS: TOLTERODINE 2 MG TABLET PO SCH ×2 (09:03→21:00)
[2016-10-27] MEDS: CALCIUM CARB/VITAMIN D 500MG-200UNITS TABLET PO SCH ×2 (09:03→16:43)
[2016-10-27] MEDS: DULOXETINE 20 MG CAPSULE.DR PO SCH (09:03)
[2016-10-27] MEDS: NICOTINE 7 MG/24HR PATCH TD SCH (09:04)
[2016-10-27] MEDS: FERROUS SULFATE 325 MG TABEC PO SCH ×2 (09:04→21:00)
[2016-10-27] MEDS: FLUOCINONIDE 0.05% CREAM 30 GM TUBE TP SCH ×2 (09:04→16:49)
[2016-10-27] MEDS ORDERED: GOLYTELY 4000 ML BOTTLE PO ONE (10:00)
--- NOTE | 2016-10-27 10:37 | NUR ---
md li ordered for egd and colonoscopy for tomorrow at 1400. ordered egd and colonoscopy and anesthesia consent. also ordered golitely, clear liquid diet and npo after midnight. contacted family. family said dont do it and refused. explained risks and benefits. pt family chloe states that " hes been through a lot. and dont do it. ". notified supervisor edging and will follow up with md Rossi
--- NOTE | 2016-10-27 12:36 | NUR ---
pt refused procedure through the use of manager embalmer funeral director [id number]. pt states the he doesnt want anything done. md notified. will wait for physicians orders.
[2016-10-27 13:40] LABS: RED BLOOD CELL COUNT(AUTO) 2.95 MIL/UL (4.7-6.1); WHITE BLOOD COUNT (AUTO) 10.9 K/UL (4.0-11.2)
[2016-10-27 13:41] LABS: BASOPHILS # (AUTO) 0.1 K/uL (0.0-8.0); BASOPHILS % (AUTO) 0.7 % (0.0-2.0); EOSINOPHILS # (AUTO) 0.3 K/uL (0.0-0.7); EOSINOPHILS % (AUTO) 2.7 % (0.0-7.0); HEMATOCRIT 27.8 % (40-50); HEMOGLOBIN 8.7 G/DL (14.0-18.0); LYMPHOCYTES # (AUTO) 2.7 K/UL (0.8-4.8); LYMPHOCYTES % (AUTO) 24.4 % (20.5-51.5); MEAN CORPUSCULAR HEMOGLOBIN 29.5 UUG (27.0-31.0); MEAN CORPUSCULAR HGB CONC 31 g/dL (32.0-37.0); MONOCYTES # (AUTO) 0.6 K/UL (0.1-1.30); MONOCYTES % (AUTO) 5.8 % (0.0-11.0); NEUTROPHILS # (AUTO) 7.2 K/UL (1.8-8.9); NEUTROPHILS % (AUTO) 66.4 % (38.5-71.5); PLATELET COUNT (AUTO) 336 K/UL (150-450)
[2016-10-27 13:47] LABS: CREATININE 2.1 mg/dL (0.6-1.3)
[2016-10-27 13:55] LABS: BAND % (MANUAL) 1 % (0-10); EOSINOPHILS % (MANUAL) 2 % (0-8); LYMPHOCYTES % (MANUAL) 30 % (20-40); MONOCYTES % (MANUAL) 6 % (2-10); NEUTROPHILS % (MANUAL) 61 % (42-75)
--- NOTE | 2016-10-27 16:29 | NUR ---
md ordered to discontinue preop protocol including xray ekg. will follow up for further instructions.
--- NOTE | 2016-10-27 19:00 | NUR ---
RECEIVED PATIENT IN BED, NO SOB NO CHEST PAIN NOTED, DENIES PAIN AT THIS TIME, KEPT CLEAN AND DRY, CALL LIGHT WITHIN REACH.
[2016-10-27 21:00] VITALS: BP 134/73
[2016-10-27] MEDS: MAGNESIUM OXIDE 400 MG TABLET PO SCH (21:00)
[2016-10-28] MEDS: PANTOPRAZOLE SODIUM 40 MG TABLET.DR PO SCH (06:05)
--- NOTE | 2016-10-28 07:01 | NUR ---
PATIENT SLEPT MOST OF THE NIGHT, NO SOB NO CHEST PAIN, DENIES PAIN, KEPT CLEAN DRY AND COMFORTABLE, CALL LIGHT WITHIN REACH.
[2016-10-28 07:28] LABS: BASOPHILS % (AUTO) 0.1 % (0.0-2.0); EOSINOPHILS # (AUTO) 0.3 K/uL (0.0-0.7); EOSINOPHILS % (AUTO) 2.7 % (0.0-7.0); HEMOGLOBIN 8.3 G/DL (14.0-18.0); LYMPHOCYTES # (AUTO) 3.7 K/UL (0.8-4.8); LYMPHOCYTES % (AUTO) 32.5 % (20.5-51.5); MEAN CORPUSCULAR HEMOGLOBIN 32.2 UUG (27.0-31.0); MEAN CORPUSCULAR HGB CONC 35 g/dL (32.0-37.0); MEAN CORPUSCULAR VOLUME 93.2 FL (82.0-92.0); MONOCYTES # (AUTO) 0.8 K/UL (0.1-1.30); MONOCYTES % (AUTO) 6.8 % (0.0-11.0); NEUTROPHILS # (AUTO) 6.7 K/UL (1.8-8.9); NEUTROPHILS % (AUTO) 57.9 % (38.5-71.5); PLATELET COUNT (AUTO) 313 K/UL (150-450); WHITE BLOOD COUNT (AUTO) 11.5 K/UL (4.0-11.2)
[2016-10-28 07:38] LABS: HEMATOCRIT 23.9 % (40-50); RED BLOOD CELL COUNT(AUTO) 2.56 MIL/UL (4.7-6.1)
[2016-10-28 07:44] LABS: CREATININE 2.1 mg/dL (0.6-1.3); MAGNESIUM 1.3 mg/dL (1.8-2.4); PHOSPHOROUS 3.5 mg/dL (2.5-4.9)
[2016-10-28] MEDS: CALCIUM CARB/VITAMIN D 500MG-200UNITS TABLET PO SCH ×2 (09:00→17:37)
[2016-10-28] MEDS: NICOTINE 7 MG/24HR PATCH TD SCH (09:00)
[2016-10-28 09:30] VITALS: BP 141/75
[2016-10-28] MEDS ORDERED: POTASSIUM CHLORIDE 20 MEQ TAB.PRT.SR PO ONE (10:45)
[2016-10-28] MEDS: MAGNESIUM SULFATE/D5W 100 ML IV SCH ×4 (10:45→13:45)
[2016-10-28] MEDS: FOLIC ACID 1 MG TABLET PO SCH (10:58)
[2016-10-28] MEDS: OMEGA-3 FATTY ACIDS/FISH OIL CAPSULE PO SCH (10:58)
[2016-10-28] MEDS: FLUCONAZOLE 100 MG TABLET PO SCH (10:58)
[2016-10-28] MEDS: DULOXETINE 20 MG CAPSULE.DR PO SCH (10:58)
[2016-10-28] MEDS: TOLTERODINE 2 MG TABLET PO SCH ×2 (10:58→20:07)
[2016-10-28] MEDS: FERROUS SULFATE 325 MG TABEC PO SCH ×2 (10:59→20:07)
[2016-10-28] MEDS: FLUOCINONIDE 0.05% CREAM 30 GM TUBE TP SCH ×2 (10:59→17:37)
[2016-10-28] MEDS: MAGNESIUM OXIDE 400 MG TABLET PO SCH (20:07)
[2016-10-28] MEDS: IV NS 1000 ML 1,000 ML IV PRN (20:08)
[2016-10-28 20:15] VITALS: BP 106/62
--- NOTE | 2016-10-29 05:15 | NUR ---
PT SLEPT WELL THROUGH THE NIGHT AND WAS EASILY AWOKEN, PT COMPLAINED OF PAIN IN HIS LEFT LEG THAT WOULD GET WORST WHILE MOVING IT, PT WAS OFFERED PAIN MEDICATION BUT REFUSED. PT DENIED HAVING ANY DIFFICULTY BREATHING, PT WAS ABLE TO MOVE INDEPENDENTLY IN BED. ALL NEEDS MET, SAFETY MEASURES ARE IN PLACE, CALL LIGHT WITHIN REACH, BED ALARM IS ON.
[2016-10-29] MEDS: PANTOPRAZOLE SODIUM 40 MG TABLET.DR PO SCH (06:02)
--- NOTE | 2016-10-29 07:00 | NUR ---
Handoff report from night nurse. Patient and family are in refusal of more assessment diagnostic testing for cancer. Patient does not request and often refuses many treatments offered, for example esophagogastroduodenoscopy, colonoscopy, and medication. Will often refuse brief change or assessment as well.
[2016-10-29 08:00] VITALS: BP 122/70
[2016-10-29 08:01] LABS: PHOSPHOROUS 3.5 mg/dL (2.5-4.9); POTASSIUM 3.3 mmol/L (3.5-5.1)
[2016-10-29 08:05] LABS: BASOPHILS % (AUTO) 0.4 % (0.0-2.0); EOSINOPHILS # (AUTO) 0.5 K/uL (0.0-0.7); EOSINOPHILS % (AUTO) 4.8 % (0.0-7.0); HEMOGLOBIN 7.7 G/DL (14.0-18.0); LYMPHOCYTES # (AUTO) 2.9 K/UL (0.8-4.8); LYMPHOCYTES % (AUTO) 30.2 % (20.5-51.5); MEAN CORPUSCULAR HEMOGLOBIN 30.5 UUG (27.0-31.0); MEAN CORPUSCULAR HGB CONC 33 g/dL (32.0-37.0); MEAN CORPUSCULAR VOLUME 93.4 FL (82.0-92.0); MONOCYTES # (AUTO) 0.7 K/UL (0.1-1.30); MONOCYTES % (AUTO) 6.7 % (0.0-11.0); NEUTROPHILS # (AUTO) 5.6 K/UL (1.8-8.9); NEUTROPHILS % (AUTO) 57.9 % (38.5-71.5); PLATELET COUNT (AUTO) 304 K/UL (150-450); RED BLOOD CELL COUNT(AUTO) 2.53 MIL/UL (4.7-6.1); WHITE BLOOD COUNT (AUTO) 9.8 K/UL (4.0-11.2)
[2016-10-29 08:06] LABS: HEMATOCRIT 23.7 % (40-50)
[2016-10-29] MEDS: CALCIUM CARB/VITAMIN D 500MG-200UNITS TABLET PO SCH ×2 (09:53→17:02)
[2016-10-29] MEDS: OMEGA-3 FATTY ACIDS/FISH OIL CAPSULE PO SCH (09:53)
[2016-10-29] MEDS: FLUCONAZOLE 100 MG TABLET PO SCH (09:53)
[2016-10-29] MEDS: FERROUS SULFATE 325 MG TABEC PO SCH ×2 (09:54→21:02)
[2016-10-29] MEDS: FOLIC ACID 1 MG TABLET PO SCH (09:54)
[2016-10-29] MEDS: NICOTINE 7 MG/24HR PATCH TD SCH (09:54)
[2016-10-29] MEDS: TOLTERODINE 2 MG TABLET PO SCH ×2 (09:54→21:02)
[2016-10-29] MEDS: DULOXETINE 20 MG CAPSULE.DR PO SCH (09:54)
[2016-10-29] MEDS: HYDROCORTISONE 2.5% LOTION 59 ML BOTTLE TP PRN (09:55)
[2016-10-29] MEDS: Z GUARD REMEDY PASTE 57 GM TUBE TOP PRN (09:56)
[2016-10-29] MEDS: FLUOCINONIDE 0.05% CREAM 30 GM TUBE TP SCH ×2 (09:56→16:59)
[2016-10-29] MEDS ORDERED: POTASSIUM CHLORIDE 20 MEQ POWDER PACKET PO ONE (10:15)
[2016-10-29] MEDS: IV NS 1000 ML 1,000 ML IV PRN (10:46)
[2016-10-29 12:09] LABS: BASOPHILS # (AUTO) 0.1 K/uL (0.0-8.0); BASOPHILS % (AUTO) 1.3 % (0.0-2.0); EOSINOPHILS # (AUTO) 0.6 K/uL (0.0-0.7); EOSINOPHILS % (AUTO) 5.2 % (0.0-7.0); HEMATOCRIT 24.7 % (40-50); LYMPHOCYTES # (AUTO) 3.7 K/UL (0.8-4.8); LYMPHOCYTES % (AUTO) 35.2 % (20.5-51.5); MEAN CORPUSCULAR HEMOGLOBIN 30.3 UUG (27.0-31.0); MEAN CORPUSCULAR HGB CONC 32 g/dL (32.0-37.0); MEAN CORPUSCULAR VOLUME 93.8 FL (82.0-92.0); MONOCYTES # (AUTO) 0.7 K/UL (0.1-1.30); MONOCYTES % (AUTO) 6.6 % (0.0-11.0); NEUTROPHILS # (AUTO) 5.5 K/UL (1.8-8.9); NEUTROPHILS % (AUTO) 51.7 % (38.5-71.5); PLATELET COUNT (AUTO) 289 K/UL (150-450); RED BLOOD CELL COUNT(AUTO) 2.63 MIL/UL (4.7-6.1); WHITE BLOOD COUNT (AUTO) 10.6 K/UL (4.0-11.2)
[2016-10-29] MEDS: BOOST PLUS 237 ML LIQUID (RICH CHOCOLATE) PO SCH (17:06)
--- NOTE | 2016-10-29 18:58 | NUR ---
Patient handoff. Clean, dry brief and underpad provided prior to change of shift. Given oral medication with dinner meal. Patient dressings changed. Stool sample unable to be collected d/t small smear. Will endorse to noc nurse. REQUISITION APPROVER thought possibly white loose liquid this am which was addressed by Ms. Atilio NP, may have been from sites of irritation at sits bones. Orders are to collect stool for OB.
[2016-10-29 20:00] VITALS: BP 117/69
--- NOTE | 2016-10-29 20:00 | NUR ---
RECEIVED PT. ALERT & FOLLOWS TO COMMAND. INCISION ON L HIP INTACT & DRY W/ PEDRO LUIS INTACT. ON RM AIR . NOT IN ANY DISTRESS. MIDLINE INTACT ON CHIDI INTACT & PATENT. REPOSITIONED W/ HOB ELEVATED.
--- NOTE | 2016-10-29 20:15 | NUR ---
IVF NS @ 75CC/HR VIA LFA. NO SIGNS OF INFILTRATION.
[2016-10-29] MEDS: MAGNESIUM OXIDE 400 MG TABLET PO SCH (21:02)
--- NOTE | 2016-10-29 22:00 | NUR ---
HS CARE, CHANGED DIAPER.
[2016-10-30] MEDS: IV NS 1000 ML 1,000 ML IV PRN ×2 (05:07→18:52)
[2016-10-30] MEDS: PANTOPRAZOLE SODIUM 40 MG TABLET.DR PO SCH (06:35)
--- NOTE | 2016-10-30 07:00 | NUR ---
IV INFUSING WELL. NOT IN ANY DISTRESS.
[2016-10-30 07:17] LABS: BASOPHILS # (AUTO) 0.1 K/uL (0.0-8.0); BASOPHILS % (AUTO) 0.8 % (0.0-2.0); EOSINOPHILS # (AUTO) 0.6 K/uL (0.0-0.7); EOSINOPHILS % (AUTO) 6.7 % (0.0-7.0); HEMATOCRIT 24.2 % (40-50); HEMOGLOBIN 8.2 G/DL (14.0-18.0); LYMPHOCYTES # (AUTO) 3.6 K/UL (0.8-4.8); LYMPHOCYTES % (AUTO) 40.8 % (20.5-51.5); MEAN CORPUSCULAR HEMOGLOBIN 31.4 UUG (27.0-31.0); MEAN CORPUSCULAR HGB CONC 34 g/dL (32.0-37.0); MEAN CORPUSCULAR VOLUME 92.5 FL (82.0-92.0); MONOCYTES # (AUTO) 0.7 K/UL (0.1-1.30); NEUTROPHILS # (AUTO) 3.9 K/UL (1.8-8.9); NEUTROPHILS % (AUTO) 43.7 % (38.5-71.5); PLATELET COUNT (AUTO) 300 K/UL (150-450); RED BLOOD CELL COUNT(AUTO) 2.61 MIL/UL (4.7-6.1); WHITE BLOOD COUNT (AUTO) 8.9 K/UL (4.0-11.2)
[2016-10-30 07:20] LABS: MAGNESIUM 1.6 mg/dL (1.8-2.4); PHOSPHOROUS 3.5 mg/dL (2.5-4.9); POTASSIUM 3.1 mmol/L (3.5-5.1)
[2016-10-30 08:00] VITALS: BP 116/70
[2016-10-30] MEDS: OMEGA-3 FATTY ACIDS/FISH OIL CAPSULE PO SCH (08:35)
[2016-10-30] MEDS: TOLTERODINE 2 MG TABLET PO SCH ×2 (08:35→20:22)
[2016-10-30] MEDS: FERROUS SULFATE 325 MG TABEC PO SCH ×2 (08:36→20:23)
[2016-10-30] MEDS: CALCIUM CARB/VITAMIN D 500MG-200UNITS TABLET PO SCH ×2 (08:36→16:41)
[2016-10-30] MEDS: FOLIC ACID 1 MG TABLET PO SCH (08:36)
[2016-10-30] MEDS: DULOXETINE 20 MG CAPSULE.DR PO SCH (08:36)
[2016-10-30] MEDS: FLUOCINONIDE 0.05% CREAM 30 GM TUBE TP SCH ×2 (08:37→16:41)
[2016-10-30] MEDS: BOOST PLUS 237 ML LIQUID (RICH CHOCOLATE) PO SCH ×2 (08:37→16:41)
[2016-10-30] MEDS: NICOTINE 7 MG/24HR PATCH TD SCH (08:45)
[2016-10-30] MEDS ORDERED: POTASSIUM CHLORIDE 20 MEQ POWDER PACKET PO ONE (10:15)
[2016-10-30] MEDS ORDERED: MAGNESIUM OXIDE 400 MG TABLET PO ONE (10:15)
[2016-10-30] MEDS: HYDROCODONE/APAP 5-325MG TABLET PO PRN (11:42)
[2016-10-30 20:00] VITALS: BP 119/70
--- NOTE | 2016-10-30 20:15 | NUR ---
NSG: RECEIVED PATIENT LAYING IN BED,A/O X3, NO C/O PAIN OR DISCOMFORT THIS TIME, KEPT CLEAN AND DRY, CALL LIGHT WITHIN REACH. CONTINUE PLAN OF CARE.
[2016-10-30] MEDS: MAGNESIUM OXIDE 400 MG TABLET PO SCH (20:22)
--- NOTE | 2016-10-30 20:38 | NUR ---
NSG: IV INFUSING WELL.
--- NOTE | 2016-10-31 00:21 | NUR ---
NSG: RESTING IN BED COMFORTABLY. IV RUNNING @ 75 CC/HRS WELL. NO C/O PAIN OR DISCOMFORT THIS TIME. CONTINUE PLAN OF CARE.
[2016-10-31] MEDS: PANTOPRAZOLE SODIUM 40 MG TABLET.DR PO SCH (06:01)
--- NOTE | 2016-10-31 06:29 | NUR ---
NSG: PT SLEPT WELL THROUGH THE NIGHT,IVF RUNNING WELL.NO COMPLICATION NOTED. PT DENIED HAVING ANY DIFFICULTY BREATHING,NO C/O PAIN OR DISCOMFORT THIS TIME. PT WAS ABLE TO MOVE INDEPENDENTLY IN BED. ALL NEEDS MET, SAFETY MEASURES ARE IN PLACE, CALL LIGHT WITHIN REACH, BED ALARM IS ON.CONTINUE PLAN OF CARE.
--- NOTE | 2016-10-31 07:15 | NUR ---
REC'D BEDSIDE SBAR REPORT. PT AWAKE, DENIED ANY PAIN/DISTRESS, PT RECEIVING 0.9NS AT 75ML/HR VIA IV PUMP. PT POSITIONED FOR COMFORT.
[2016-10-31 07:25] LABS: BASOPHILS # (AUTO) 0.1 K/uL (0.0-8.0); BASOPHILS % (AUTO) 1.4 % (0.0-2.0); EOSINOPHILS # (AUTO) 0.7 K/uL (0.0-0.7); EOSINOPHILS % (AUTO) 8.8 % (0.0-7.0); HEMOGLOBIN 7.7 G/DL (14.0-18.0); LYMPHOCYTES # (AUTO) 3.3 K/UL (0.8-4.8); LYMPHOCYTES % (AUTO) 39.5 % (20.5-51.5); MEAN CORPUSCULAR HEMOGLOBIN 30.7 UUG (27.0-31.0); MEAN CORPUSCULAR HGB CONC 33 g/dL (32.0-37.0); MEAN CORPUSCULAR VOLUME 92.4 FL (82.0-92.0); MONOCYTES # (AUTO) 0.6 K/UL (0.1-1.30); MONOCYTES % (AUTO) 7.1 % (0.0-11.0); NEUTROPHILS # (AUTO) 3.7 K/UL (1.8-8.9); NEUTROPHILS % (AUTO) 43.2 % (38.5-71.5); PLATELET COUNT (AUTO) 306 K/UL (150-450); RED BLOOD CELL COUNT(AUTO) 2.51 MIL/UL (4.7-6.1); WHITE BLOOD COUNT (AUTO) 8.4 K/UL (4.0-11.2)
[2016-10-31 07:30] VITALS: BP 124/75
[2016-10-31 07:31] LABS: HEMATOCRIT 23.2 % (40-50)
[2016-10-31 07:32] LABS: CREATININE 2.1 mg/dL (0.6-1.3); MAGNESIUM 1.3 mg/dL (1.8-2.4); PHOSPHOROUS 3.6 mg/dL (2.5-4.9); POTASSIUM 3.8 mmol/L (3.5-5.1)
[2016-10-31 08:02] VITALS: BP 133/74
[2016-10-31] MEDS: BOOST PLUS 237 ML LIQUID (RICH CHOCOLATE) PO SCH ×2 (08:11→16:19)
[2016-10-31] MEDS: DULOXETINE 20 MG CAPSULE.DR PO SCH (08:28)
[2016-10-31] MEDS: FERROUS SULFATE 325 MG TABEC PO SCH ×2 (08:28→21:05)
[2016-10-31] MEDS: FLUOCINONIDE 0.05% CREAM 30 GM TUBE TP SCH ×2 (08:28→16:18)
[2016-10-31] MEDS: CALCIUM CARB/VITAMIN D 500MG-200UNITS TABLET PO SCH ×2 (08:28→16:18)
[2016-10-31] MEDS: NICOTINE 7 MG/24HR PATCH TD SCH (08:28)
[2016-10-31] MEDS: OMEGA-3 FATTY ACIDS/FISH OIL CAPSULE PO SCH (08:29)
[2016-10-31] MEDS: IV NS 1000 ML 1,000 ML IV PRN (09:27)
[2016-10-31] MEDS: TOLTERODINE 2 MG TABLET PO SCH ×2 (09:32→21:05)
[2016-10-31] MEDS: FOLIC ACID 1 MG TABLET PO SCH (09:33)
[2016-10-31] MEDS: MAGNESIUM SULFATE/D5W 100 ML IV SCH ×2 (12:15→12:33)
--- NOTE | 2016-10-31 18:45 | NUR ---
pt progressing towards goals, pt participating in activities and care, continue plans of care.
--- NOTE | 2016-10-31 19:30 | NUR ---
RECEIVED PATIENT AWAKE, ALERT, AND ORIENTED X3. SPEAKS AND UNDERSTANDS SOME HEBREW. USES CALL LIGHT TO MAKE NEEDS KNOWN. CALL LIGHT KEPT WITHIN REACH AAT. INCONTINENT OF URINE IN DIAPERS. CLEANED WELL AND KEPT SKIN CLEAN AND DRY.NO C/O DISCOMFORT AT PRESENT. NO RESPIRATORY DISTRESS ON ROOM AIR. ON SPECIALTY BED TO PROTECT SKIN FROM SKIN BREAKDOWN. IVF'S AT 75 ML/HR INFUSING VIA CHIDI MIDLINE WITHOUT SIGNS OF INFILTRATION OR PHLEBITIS AT SITE. INFUSING WELL, HOWEVER UNABLE TO WITHDRAW BLOOD FROM LINE EVEN WITH CHANGES IN POSITION OF ARM. THIS IS WHAT THE ASSESSMENT OF THIS LINE HAS BEEN WITH FOR QUITE SOME TIME.INSTRUCTED TO CALL RN FOR ANY NEEDS AND CONCERNS. CALL LIGHT WITHIN REACH AAT.
[2016-10-31 20:00] VITALS: BP 124/73
[2016-10-31] MEDS: MAGNESIUM OXIDE 400 MG TABLET PO SCH (21:05)
[2016-11-01] MEDS: IV NS 1000 ML 1,000 ML IV PRN ×2 (03:09→17:53)
--- NOTE | 2016-11-01 06:00 | NUR ---
SLEPT WELL LAST NIGHT. INCONTINENCE IN DIAPERS CHANGED 3 TIMES. SKIN KEPT CLEAN AND DRY. MIDLINE CHIDI PATENT AND INFUSING NORMAL SALINE AT 75 ML/HR WITHOUT DIFFICULTY. COMFORTABLE THIS MORNING WITHOUT C/O. CALL LIGHT WITHIN REACH
[2016-11-01] MEDS: PANTOPRAZOLE SODIUM 40 MG TABLET.DR PO SCH (06:10)
[2016-11-01 07:08] LABS: BASOPHILS # (AUTO) 0.1 K/uL (0.0-8.0); EOSINOPHILS # (AUTO) 0.7 K/uL (0.0-0.7); EOSINOPHILS % (AUTO) 7.3 % (0.0-7.0); HEMOGLOBIN 7.8 G/DL (14.0-18.0); LYMPHOCYTES # (AUTO) 3.6 K/UL (0.8-4.8); LYMPHOCYTES % (AUTO) 38.4 % (20.5-51.5); MEAN CORPUSCULAR HEMOGLOBIN 31.4 UUG (27.0-31.0); MEAN CORPUSCULAR HGB CONC 34 g/dL (32.0-37.0); MEAN CORPUSCULAR VOLUME 92.9 FL (82.0-92.0); MONOCYTES # (AUTO) 0.7 K/UL (0.1-1.30); MONOCYTES % (AUTO) 7.3 % (0.0-11.0); NEUTROPHILS # (AUTO) 4.3 K/UL (1.8-8.9); PLATELET COUNT (AUTO) 313 K/UL (150-450); WHITE BLOOD COUNT (AUTO) 9.4 K/UL (4.0-11.2)
[2016-11-01 07:19] LABS: RED BLOOD CELL COUNT(AUTO) 2.47 MIL/UL (4.7-6.1)
[2016-11-01 07:27] LABS: CREATININE 2.1 mg/dL (0.6-1.3); MAGNESIUM 1.7 mg/dL (1.8-2.4); PHOSPHOROUS 3.9 mg/dL (2.5-4.9); POTASSIUM 4.1 mmol/L (3.5-5.1)
--- NOTE | 2016-11-01 07:30 | NUR ---
Received patient awake, verbally responsive, coherent, able to make needs known, afebrile, not in any form of acute distress. IV fluid infusing well. He denies any pain or discomfort at this time. Environmental safety check done. Reminded to use call light for assistance. Call light placed within reach.
[2016-11-01] MEDS: BOOST PLUS 237 ML LIQUID (RICH CHOCOLATE) PO SCH ×2 (08:00→17:00)
[2016-11-01 08:29] LABS: BAND % (MANUAL) 2 % (0-10); EOSINOPHILS % (MANUAL) 5 % (0-8); LYMPHOCYTES % (MANUAL) 44 % (20-40); MONOCYTES % (MANUAL) 7 % (2-10); NEUTROPHILS % (MANUAL) 42 % (42-75)
[2016-11-01] MEDS: TOLTERODINE 2 MG TABLET PO SCH ×2 (09:23→21:24)
[2016-11-01] MEDS: CALCIUM CARB/VITAMIN D 500MG-200UNITS TABLET PO SCH ×2 (09:23→17:01)
[2016-11-01] MEDS: FERROUS SULFATE 325 MG TABEC PO SCH ×2 (09:23→21:23)
[2016-11-01] MEDS: FOLIC ACID 1 MG TABLET PO SCH (09:23)
[2016-11-01] MEDS: DULOXETINE 20 MG CAPSULE.DR PO SCH (09:23)
[2016-11-01] MEDS: OMEGA-3 FATTY ACIDS/FISH OIL CAPSULE PO SCH (09:23)
[2016-11-01] MEDS: FLUOCINONIDE 0.05% CREAM 30 GM TUBE TP SCH ×2 (09:24→17:01)
[2016-11-01] MEDS: NICOTINE 7 MG/24HR PATCH TD SCH (09:24)
[2016-11-01] MEDS ORDERED: MAGNESIUM OXIDE 400 MG TABLET PO ONE (13:45)
--- NOTE | 2016-11-01 19:30 | NUR ---
Patient in room laying down on bed with no distress noted. Has surgical incision sites on left hip with deloris. No redness or swelling noted on surgical site. Patient denies N/V,SOB,pain at this time
[2016-11-01] MEDS: MAGNESIUM OXIDE 400 MG TABLET PO SCH (21:24)
[2016-11-01 21:42] VITALS: BP 125/84
[2016-11-02] MEDS: PANTOPRAZOLE SODIUM 40 MG TABLET.DR PO SCH (06:29)
[2016-11-02] MEDS: IV NS 1000 ML 1,000 ML IV PRN (06:29)
[2016-11-02 08:00] VITALS: BP 133/82
[2016-11-02] MEDS: BOOST PLUS 237 ML LIQUID (RICH CHOCOLATE) PO SCH ×2 (08:18→17:34)
[2016-11-02] MEDS: TOLTERODINE 2 MG TABLET PO SCH ×2 (08:19→20:47)
[2016-11-02] MEDS: FERROUS SULFATE 325 MG TABEC PO SCH ×2 (08:19→20:47)
[2016-11-02] MEDS: CALCIUM CARB/VITAMIN D 500MG-200UNITS TABLET PO SCH ×2 (08:19→17:33)
[2016-11-02] MEDS: DULOXETINE 20 MG CAPSULE.DR PO SCH (08:19)
[2016-11-02] MEDS: OMEGA-3 FATTY ACIDS/FISH OIL CAPSULE PO SCH (08:19)
[2016-11-02] MEDS: NICOTINE 7 MG/24HR PATCH TD SCH (08:19)
[2016-11-02] MEDS: FOLIC ACID 1 MG TABLET PO SCH (08:19)
[2016-11-02] MEDS: FLUOCINONIDE 0.05% CREAM 30 GM TUBE TP SCH ×2 (08:25→17:34)
[2016-11-02] MEDS: HYDROCODONE/APAP 5-325MG TABLET PO PRN ×2 (10:43→17:33)
--- NOTE | 2016-11-02 10:44 | NUR ---
Patient up with PT reports pain of 8/10. Sidney given. Patient resting in bed at this time. NO noted distress otherwise.
--- NOTE | 2016-11-02 19:48 | NUR ---
Patient in room laying down on bed with no distress noted. Denies pain SOB,N/V at this time. Has incision on left hip with deloris with no redness or swelling noted
[2016-11-02] MEDS: MAGNESIUM OXIDE 400 MG TABLET PO SCH (20:47)
[2016-11-03] MEDS: IV NS 1000 ML 1,000 ML IV PRN (01:00)
[2016-11-03] MEDS: PANTOPRAZOLE SODIUM 40 MG TABLET.DR PO SCH (06:01)
[2016-11-03] MEDS: BOOST PLUS 237 ML LIQUID (RICH CHOCOLATE) PO SCH (08:00)
[2016-11-03 08:08] LABS: BASOPHILS # (AUTO) 0.1 K/uL (0.0-8.0); EOSINOPHILS # (AUTO) 0.5 K/uL (0.0-0.7); EOSINOPHILS % (AUTO) 5.3 % (0.0-7.0); HEMATOCRIT 24.9 % (40-50); HEMOGLOBIN 8.2 G/DL (14.0-18.0); LYMPHOCYTES # (AUTO) 2.3 K/UL (0.8-4.8); LYMPHOCYTES % (AUTO) 24.7 % (20.5-51.5); MEAN CORPUSCULAR HEMOGLOBIN 30.7 UUG (27.0-31.0); MEAN CORPUSCULAR HGB CONC 33 g/dL (32.0-37.0); MEAN CORPUSCULAR VOLUME 93.2 FL (82.0-92.0); MONOCYTES # (AUTO) 0.8 K/UL (0.1-1.30); MONOCYTES % (AUTO) 8.5 % (0.0-11.0); NEUTROPHILS # (AUTO) 5.5 K/UL (1.8-8.9); NEUTROPHILS % (AUTO) 60.5 % (38.5-71.5); PLATELET COUNT (AUTO) 318 K/UL (150-450); RED BLOOD CELL COUNT(AUTO) 2.67 MIL/UL (4.7-6.1); WHITE BLOOD COUNT (AUTO) 9.2 K/UL (4.0-11.2)
[2016-11-03 08:28] LABS: CREATININE 2.1 mg/dL (0.6-1.3); POTASSIUM 3.3 mmol/L (3.5-5.1)
[2016-11-03 08:29] LABS: BILIRUBIN,TOTAL 0.5 mg/dL (0.2-1.0); MAGNESIUM 1.3 mg/dL (1.8-2.4); PHOSPHOROUS 3.9 mg/dL (2.5-4.9); TOTAL PROTEIN, SERUM 6.1 g/dL (6.4-8.2)
[2016-11-03 08:40] VITALS: BP 129/80
[2016-11-03] MEDS: NICOTINE 7 MG/24HR PATCH TD SCH (09:09)
[2016-11-03] MEDS: FOLIC ACID 1 MG TABLET PO SCH (09:10)
[2016-11-03] MEDS: OMEGA-3 FATTY ACIDS/FISH OIL CAPSULE PO SCH (09:10)
[2016-11-03] MEDS: FERROUS SULFATE 325 MG TABEC PO SCH (09:10)
[2016-11-03] MEDS: DULOXETINE 20 MG CAPSULE.DR PO SCH (09:10)
[2016-11-03] MEDS: FLUOCINONIDE 0.05% CREAM 30 GM TUBE TP SCH (09:10)
[2016-11-03] MEDS: CALCIUM CARB/VITAMIN D 500MG-200UNITS TABLET PO SCH (09:10)
[2016-11-03] MEDS: TOLTERODINE 2 MG TABLET PO SCH (09:10)
--- NOTE | 2016-11-03 14:32 | NUR ---
pt left at 1400 in a gurney. pt given discharge instructions along with exitcare handout. pt teaching done on the pt with the use of exitcare. pt family verbalizes understanding and was translated by the family. pt given a prescription along with discharge summary. pt family verbalizes continuity of care. pt belongings taken. no signs of acute distress. vital signs stable. pt assisted into ambulance
[2016-11-03] MEDS ORDERED: MAGNESIUM OXIDE 400 MG TABLET PO ONE (15:00)
[2016-11-03] MEDS ORDERED: POTASSIUM CHLORIDE 20 MEQ POWDER PACKET PO ONE (15:00)
== END 2016-11-03 14:00 | disposition home health service (06) | DRG 559 ==
PROVIDERS: ADMIT Physical Medicine & Rehabilitation Pain Medicine; ATTEND Physical Medicine & Rehabilitation Pain Medicine
DX: M80.052D Age-related osteoporosis with current pathological fracture, left femur, subsequent encounter for fracture with routine healing (principal); E43 Unspecified severe protein-calorie malnutrition; A41.9 Sepsis, unspecified organism; I21.4 Non-ST elevation (NSTEMI) myocardial infarction; N17.0 Acute kidney failure with tubular necrosis; D68.59 Other primary thrombophilia; K61.1 Rectal abscess; L97.429 Non-pressure chronic ulcer of left heel and midfoot with unspecified severity; L97.419 Non-pressure chronic ulcer of right heel and midfoot with unspecified severity; E78.5 Hyperlipidemia, unspecified; E55.9 Vitamin D deficiency, unspecified; I25.10 Atherosclerotic heart disease of native coronary artery without angina pectoris; K21.9 Gastro-esophageal reflux disease without esophagitis; R62.7 Adult failure to thrive; D17.9 Benign lipomatous neoplasm, unspecified; R19.7 Diarrhea, unspecified; I70.0 Atherosclerosis of aorta; I51.7 Cardiomegaly; J44.9 Chronic obstructive pulmonary disease, unspecified; I73.9 Peripheral vascular disease, unspecified; F17.210 Nicotine dependence, cigarettes, uncomplicated; F10.10 Alcohol abuse, uncomplicated; D63.8 Anemia in other chronic diseases classified elsewhere; D50.9 Iron deficiency anemia, unspecified; I10 Essential (primary) hypertension; K74.60 Unspecified cirrhosis of liver; E53.8 Deficiency of other specified B group vitamins; E87.6 Hypokalemia; Z95.5 Presence of coronary angioplasty implant and graft; Z91.81 History of falling; R19.00 Intra-abdominal and pelvic swelling, mass and lump, unspecified site; R26.2 Difficulty in walking, not elsewhere classified; R79.89 Other specified abnormal findings of blood chemistry; R19.5 Other fecal abnormalities
CPT/HCPCS: 36415; 82378; 82746; 82784; 83550; 83615; 83735; 84100; 84155; 84165; 84443; 85025; 86334; 92526; 92610; 97110; 97112; 97116; 97530; 97535; A4217; A4663; A9150; J2543; J2916; J3370; J3475; J3490; J7030; J7050